=== PATIENT | female | born 2000 | race Caucasian/White ===

== ENCOUNTER 2023-01-24 19:34 | Emergency (ER) | payer BC ==
[2023-01-24 19:46] VITALS: TEMP 98.1
--- NOTE | 2023-01-24 20:22 | ED ---
Abdominal Pain HPI - General Source: patient, RN notes reviewed Mode of arrival: ambulatory <Jenny Diaz - Last Filed: 01/24/23 20:21> <Bowen Staley - Last Filed: 01/24/23 23:17> - General Chief Complaint: Abdominal Pain Stated Complaint: lower abd pain Time Seen by Provider: 01/24/23 20:21 - History of Present Illness Initial Comments: Patient is a 22-year-old female presents to the emergency department for abdominal pain. Patient reports intermittent pain in her left lower abdomen for the past week. Pain radiates to the back. It is worse with lifting heavy objects. Patient denies fever, chills, nausea, vomiting, blood in the urine, burning with urination, increased urinary frequency/urgency. Denies chance of . (Jenny Diaz) Patient is a 22-year-old female with past medical history remarkable for fibromyalgia, kidney stones who presents emergency Department complaining of left lower quadrant and left flank pain that started the last couple days. It is worse when she lifts or moves in certain directions. Comes and goes and waxing and waning. No known palliative factors. Denies any chest pain or shortness breath. Denies any fevers or cough. Denies any nausea, vomiting, diarrhea. Denies any dysuria or hematuria. Denies any vaginal discharge or bleeding. States the pain is somewhat sharp and achy. Does have a history of prior septic kidney stone. Is concerned regarding this. Presents for further evaluation at this time. (Bowen Staley) - Related Data Allergies Allergy/AdvReac Type Severity Reaction Status Date / Time No Known Allergies Allergy Verified 01/24/23 19:47 Review of Systems ROS Other: All systems not noted in ROS Statement are negative. <Jenny Diaz - Last Filed: 01/24/23 20:21> ROS Other: All systems not noted in ROS Statement are negative. <Bowen Staley - Last Filed: 01/24/23 23:17> ROS Statement: Those systems with pertinent positive or pertinent negative responses have been documented in the HPI. Review of Systems: CONST: Denies fever EYES: Denies blurry vision ENT: Denies nasal congestion C/V: Denies Chest pain RESP: Denies shortness of breath GI: Endorses left flank pain : Denies dysuria SKIN: Denies rash. MSK: Denies joint pain. NEURO: Denies headache (Bowen Staley) Past Medical History Past Medical History: No Reported History, Seizure Disorder Additional Past Medical History / Comment(s): FIbro, stent for kidney History of Any Multi-Drug Resistant Organisms: C-DIFF Past Surgical History: Appendectomy, Tonsillectomy Past Psychological History: No Psychological Hx Reported, Anxiety, PTSD Smoking Status: Current every day smoker Past Alcohol Use History: Rare Past Drug Use History: Marijuana <Jenny Diaz - Last Filed: 01/24/23 20:21> General Exam <Jenny Diaz - Last Filed: 01/24/23 20:21> <Bowen Staley - Last Filed: 01/24/23 23:17> - General Exam Comments Initial Comments: Visual Physical Exam Vital signs reviewed General: Well-appearing, nontoxic, no acute distress. Head: Normocephalic, atraumatic Eyes: PERRLA, EOMI ENT: Airway patent Chest: Nonlabored breathing Skin: No visual rash, normal skin tone Neuro: Alert and oriented 3 Musculoskeletal: No gross abnormalities (Jenny Diaz) General: Appears in no acute distress. HEAD: Normal with no signs of head trauma. EYES: PERRLA, EOMI, conjunctiva normal, no discharge. ENT: Hearing grossly intact, normal oropharynx. RESPIRATORY: Clear breath sounds bilaterally. No wheezes, rales, or rhonchi. C/V: Regular rate and rhythm. S1 and S2 auscultated, no edema, peripheral pulses 2+ and intact throughout ABD: Abdomen is soft, nondistended. Mild tenderness to palpation mostly in the left flank with radiation to the left paraspinal muscles in the lower lumbar spine. Seems to be radicular in nature and worse with movement. No guarding. No peritoneal signs. No rebound tenderness. EXT: Normal range of motion, no obvious deformity. No midline cervical, thoracic, lumbar spine tenderness palpation. SKIN: No rashes or lesions observed on exposed skin. NEURO: Alert and oriented 4. (Bowen Staley) Course Vital Signs 01/24/23 19:43 Temperature 98.1 F Pulse Rate 72 Respiratory 16 Rate Blood Pressure 120/76 O2 Sat by Pulse 98 Oximetry Medical Decision Making - Lab Data Result diagrams: 01/24/23 21:38 01/24/23 21:38 <Bowen Staley - Last Filed: 01/24/23 23:17> - Medical Decision Making Was pt. sent in by a medical professional or institution (GINETTE Peng, [employer], urgent care, hospital, or senior living...) When possible be specific @ -No Did you speak to anyone other than the patient for history (EMS, parent, family, police, friend...)? What history was obtained from this source @ -No Did you review nursing and triage notes (agree or disagree)? Why? @ -I reviewed and agree with nursing and triage notes Were old charts reviewed (outside hosp., previous admission, EMS record, old EKG, old radiological studies, urgent care reports/EKG's, senior living records)? Report findings @ -No old charts were reviewed Differential Diagnosis (chest pain, altered mental status, abdominal pain women, abdominal pain men, vaginal bleeding, weakness, fever, dyspnea, syncope, headache, dizziness, GI bleed, back pain, seizure, CVA, palpatations, mental health, musculoskeletal)? @ -Differential Abdominal Pain Women: Appendicitis, Cholecystitis, diverticulosis, ischemic bowel, pancreatitis, hepatitis, UTI, gastroenteritis, AAA, incarcerated hernia, bowel obstruction, constipation, inflammatory bowel, hepatitis, peptic ulcer disease, splenic infarction, perforated viscus, vulvitis, ovarian torsion, PID, kidney stone, placenta abruption, this is not meant to be an all-inclusive list EKG interpreted by me (3pts min.). @ -None done X-rays interpreted by me (1pt min.). @ -None done CT interpreted by me (1pt min.). @ -None done U/S interpreted by me (1pt. min.). @ -Interpreted by radiology. Pelvic ultrasound revealed no evidence of ovarian torsion or mass. Bladder and renal ultrasound revealed no evidence of hydronephrosis or stone. What testing was considered but not performed or refused? (CT, X-rays, U/S, labs)? Why? @ -Considered CT imaging however, patient's mentation is slow musculoskeletal and therefore we will defer until laboratory studies return. She was in agreement this plan. What meds were considered but not given or refused? Why? @ -None Did you discuss the management of the patient with other professionals (professionals i.e. Dr., PA, [employer], lab, RT, psych nurse, social director, creative services writer, teacher, senior loan officer, manager case)? Give summary @ -No Was smoking cessation discussed for >3mins.? @ -No Was critical care preformed (if so, how long)? @ -No Were there social determinants of health that impacted care today? How? (Homelessness, low income, unemployed, alcoholism, drug addiction, transportation, low edu. Level, literacy, decrease access to med. care, prison, rehab)? @ -No Was there de-escalation of care discussed even if they declined (Discuss DNR or withdrawal of care, Hospice)? DNR status @ -No What co-morbidities impacted this encounter? (DM, HTN, Smoking, COPD, CAD, Cancer, CVA, ARF, Chemo, Hep., AIDS, mental health diagnosis, sleep apnea, morbid obesity)? @ -None Was patient admitted / discharged? Hospital course, mention meds given and route, prescriptions, significant lab abnormalities, going to OR and other pertinent info. @ -Based on the patient's presentation and physical exam, she presents with concern for abdominal pain. Has a history of kidney stones. States it is somewhat related but not exactly. States the pain is currently improved. Initially expressed the pain when lifting up a child. His no other acute complaints at this time. We will obtain abdominal laboratory studies. Pelvic ultrasound obtained while the patient was in triage that she was initially seen as a quick note, and was negative for any evidence of torsion. We'll add on a bladder and renal ultrasound at this time. She was in agreement with this plan. She'll be given a 1 L fluid bolus as well as IV Toradol for analgesia. Patient's labs are within acceptable limits including a lactic acid within normal limits. No leukocytosis. Urine shows no evidence of hematuria or infection. Patient is not . Ultrasound of the kidney and bladder unremarkable. I updated the patient. We did discuss possible CT imaging, and after discussion decided to defer CT imaging as patient's pain is somewhat improved, she has normal laboratory studies. Ultrasound is unremarkable. She was in agreement this plan. She'll be given prescriptions for Robaxin as well as lidocaine patch. Discussed return precautions. She was in agreement this plan. We discussed that is not appeared is a kidney stone at this time. Pain may be musculoskeletal related. I will provide the patient with a prescription for Robaxin, lidocaine patch. I instructed the patient to follow up with their PCP in the next 1-3 days. I explained that the patient should return to the emergency department if they experience any worsening symptoms. Strict return precautions were discussed with the patient. The patient expressed understanding of these instructions. I answered all questions that the patient had. The patient was discharged home in good condition with their prescriptions and follow up information. Undiagnosed new problem with uncertain prognosis? @ -No Drug Therapy requiring intensive monitoring for toxicity (Heparin, Nitro, Insulin, Cardizem)? @ -No Were any procedures done? @ -No Diagnosis/symptom? @ -Left flank pain, suspect musculoskeletal Acute, or Chronic, or Acute on Chronic? @ -Acute Uncomplicated (without systemic symptoms) or Complicated (systemic symptoms)? @ -uncomplicated Side effects of treatment? @ -No Exacerbation, Progression, or Severe Exacerbation? @ -No Poses a threat to life or bodily function? How? (Chest pain, [place], [place], pneumonia, PE, COPD, DKA, ARF, appy, cholecystitis, CVA, Diverticulitis, Homicidal, Suicidal, threat to staff... and all critical care pts) @ -No (Bowen Staley) - Lab Data Lab Results 01/24/23 01/24/23 01/24/23 Range/Units 20:48 20:48 21:38 WBC 9.0 (3.8-10.6) k/uL RBC 4.41 (3.80-5.40) m/uL Hgb 13.6 (11.4-16.0) gm/dL Hct 40.0 (34.0-46.0) % MCV 90.8 (80.0-100.0) fL MCH 30.9 (25.0-35.0) pg MCHC 34.0 (31.0-37.0) g/dL RDW 12.5 (11.5-15.5) % Plt Count 247 (150-450) k/uL MPV 7.9 Neutrophils % 42 % Lymphocytes % 44 % Monocytes % 4 % Eosinophils % 5 % Basophils % 1 % Neutrophils # 3.8 (1.3-7.7) k/uL Lymphocytes # 4.0 (1.0-4.8) k/uL Monocytes # 0.4 (0-1.0) k/uL Eosinophils # 0.5 (0-0.7) k/uL Basophils # 0.1 (0-0.2) k/uL Sodium (137-145) mmol/L Potassium (3.5-5.1) mmol/L Chloride (98-107) mmol/L Carbon Dioxide (22-30) mmol/L Anion Gap mmol/L BUN (7-17) mg/dL Creatinine (0.52-1.04) mg/dL Est GFR (CKD-EPI)AfAm (>60 ml/min/1.73 sqM) Est GFR (CKD-EPI)NonAf (>60 ml/min/1.73 sqM) Glucose (74-99) mg/dL Plasma Lactic Acid Tee (0.7-2.0) mmol/L Calcium (8.4-10.2) mg/dL Total Bilirubin (0.2-1.3) mg/dL AST (14-36) U/L ALT (4-34) U/L Alkaline Phosphatase (38-126) U/L Total Protein (6.3-8.2) g/dL Albumin (3.5-5.0) g/dL Lipase (23-300) U/L Urine Color Yellow Urine Appearance Cloudy H (Clear) Urine pH 7.0 (5.0-8.0) Ur Specific [place] 1.022 (1.001-1.035) Urine Protein Negative (Negative) Urine Glucose (UA) Negative (Negative) Urine Ketones Negative (Negative) Urine Blood Negative (Negative) Urine Nitrite Negative (Negative) Urine Bilirubin Negative (Negative) Urine Urobilinogen <2.0 (<2.0) mg/dL Ur Leukocyte Esterase Negative (Negative) Urine RBC 1 (0-5) /hpf Urine WBC <1 (0-5) /hpf Urine WBC Clumps Rare H (None) /hpf Ur Squamous Epith Cells 1 (0-4) /hpf Amorphous Sediment Occasional H (None) /hpf Urine Bacteria Rare H (None) /hpf Urine Mucus Rare H (None) /hpf Urine HCG, Qual Not Detected (Not Detectd) 01/24/23 01/24/23 Range/Units 21:38 21:38 WBC (3.8-10.6) k/uL RBC (3.80-5.40) m/uL Hgb (11.4-16.0) gm/dL Hct (34.0-46.0) % MCV (80.0-100.0) fL MCH (25.0-35.0) pg MCHC (31.0-37.0) g/dL RDW (11.5-15.5) % Plt Count (150-450) k/uL MPV Neutrophils % % Lymphocytes % % Monocytes % % Eosinophils % % Basophils % % Neutrophils # (1.3-7.7) k/uL Lymphocytes # (1.0-4.8) k/uL Monocytes # (0-1.0) k/uL Eosinophils # (0-0.7) k/uL Basophils # (0-0.2) k/uL Sodium 137 (137-145) mmol/L Potassium 3.5 (3.5-5.1) mmol/L Chloride 102 (98-107) mmol/L Carbon Dioxide 26 (22-30) mmol/L Anion Gap 9 mmol/L BUN 8 (7-17) mg/dL Creatinine 0.55 (0.52-1.04) mg/dL Est GFR (CKD-EPI)AfAm >90 (>60 ml/min/1.73 sqM) Est GFR (CKD-EPI)NonAf >90 (>60 ml/min/1.73 sqM) Glucose 83 (74-99) mg/dL Plasma Lactic Acid Tee 0.8 (0.7-2.0) mmol/L Calcium 9.4 (8.4-10.2) mg/dL Total Bilirubin 0.5 (0.2-1.3) mg/dL AST 21 (14-36) U/L ALT 13 (4-34) U/L Alkaline Phosphatase 75 (38-126) U/L Total Protein 7.2 (6.3-8.2) g/dL Albumin 4.7 (3.5-5.0) g/dL Lipase 76 (23-300) U/L Urine Color Urine Appearance (Clear) Urine pH (5.0-8.0) Ur Specific [place] (1.001-1.035) Urine Protein (Negative) Urine Glucose (UA) (Negative) Urine Ketones (Negative) Urine Blood (Negative) Urine Nitrite (Negative) Urine Bilirubin (Negative) Urine Urobilinogen (<2.0) mg/dL Ur Leukocyte Esterase (Negative) Urine RBC (0-5) /hpf Urine WBC (0-5) /hpf Urine WBC Clumps (None) /hpf Ur Squamous Epith Cells (0-4) /hpf Amorphous Sediment (None) /hpf Urine Bacteria (None) /hpf Urine Mucus (None) /hpf Urine HCG, Qual (Not Detectd) Disposition <Jenny Diaz - Last Filed: 01/24/23 20:21> Is patient prescribed a controlled substance at d/c from ED?: No Time of Disposition: 23:08 <Bowen Staley - Last Filed: 01/24/23 23:17> Clinical Impression: Muscle strain, Flank pain Disposition: HOME SELF-CARE Condition: Good Instructions (If sedation given, give patient instructions): Muscle Strain (ED) Referrals: None,Stated [REFERRING] - 1-2 days
--- NOTE | 2023-01-24 21:23 | US ---
EXAMINATION TYPE: US pelvic complete DATE OF EXAM: 01/24/2023 COMPARISON: NONE CLINICAL INDICATION: Female, 22 years old with history of LLQ pain; LLQ pain radiating to back TECHNIQUE: Transabdominal sonographic images of the pelvis were acquired. Transvaginal sonographic im ages were medically necessary to better assess the following anatomy: ovaries and uterus. Date of LMP: Unknown EXAM MEASUREMENTS: Uterus: 6.8 x 4.7 x 2.9 cm Endometrial Stripe: 0.62 cm Right Ovary: 2.5 x 2.5 x 1.6 cm Left Ovary: 3.6 x 2.0 x 2.1 cm 1. Uterus: Retroverted; wnl. IUD appears in anatomic position 2. Endometrium: wnl 3. Right Ovary: dominant follicle seen 4. Left Ovary: wnl Spectral, color and waveform doppler imaging shows good arterial and venous flow within the ovaries ; there is no evidence for ovarian torsion. 5. Bilateral Adnexa: Bowel gas visualized in bilateral adnexa 6. Posterior cul-de-sac: trace amount of fluid seen IMPRESSION: No acute sonographic process.
[2023-01-24] MEDS ORDERED: SODIUM CHLORIDE 0.9% 1,000 ML IV STA (21:45)
[2023-01-24] MEDS ORDERED: KETOROLAC 15 MG/ML 1 ML VIAL IVP STA (21:45)
[2023-01-24 22:14] LABS: Basophils # (A) 0.1 k/uL (0-0.2); Basophils % (A) 1 %; Eosinophils # (A) 0.5 k/uL (0-0.7); Eosinophils % (A) 5 %; HGB 13.6 gm/dL (11.4-16.0); Lymphocytes % (A) 44 %; MCH 30.9 pg (25.0-35.0); MCV 90.8 fL (80.0-100.0); Mean Platelet Volume 7.9; Monocytes # (A) 0.4 k/uL (0-1.0); Monocytes % (A) 4 %; Neutrophils # (A) 3.8 k/uL (1.3-7.7); Neutrophils % (A) 42 %; Platelet Count 247 k/uL (150-450); RBC 4.41 m/uL (3.80-5.40); RDW 12.5 % (11.5-15.5)
[2023-01-24 22:20] LABS: Amorphous Sediment,Urine Occasional /hpf; Appearance,Urine Cloudy (Clear); Bacteria,Urine Rare /hpf; Bilirubin,Urine Negative (Negative); Blood,Urine Negative (Negative); Color,Urine Yellow; Glucose,Urine (UA) Negative (Negative); Ketones,Urine Negative (Negative); Leukocyte Esterase,Urine Negative (Negative); Mucus,Urine Rare /hpf; Nitrite,Urine Negative (Negative); Protein,Urine Negative (Negative); RBC,Urine 1 /hpf (0-5); Specific Gravity,Urine 1.022 (1.001-1.035); Squamous Epithelial Cell,Urine 1 /hpf (0-4); Urobilinogen,Urine <2.0 mg/dL (<2.0); WBC,Urine <1 /hpf (0-5)
[2023-01-24 22:31] LABS: ALT 13 U/L (4-34); AST 21 U/L (14-36); African American GFR (CKD) >90 (>60 ml/min/1.73 sqM); Albumin 4.7 g/dL (3.5-5.0); Alkaline Phosphatase 75 U/L (38-126); Anion Gap 9 mmol/L; Blood Urea Nitrogen 8 mg/dL (7-17); Calcium 9.4 mg/dL (8.4-10.2); Carbon Dioxide 26 mmol/L (22-30); Chloride 102 mmol/L (98-107); Glucose 83 mg/dL (74-99); Lipase 76 U/L (23-300); Non-African American GFR(CKD) >90 (>60 ml/min/1.73 sqM); Potassium 3.5 mmol/L (3.5-5.1); Sodium 137 mmol/L (137-145); Total Bilirubin 0.5 mg/dL (0.2-1.3); Total Protein 7.2 g/dL (6.3-8.2)
[2023-01-24] MEDS ORDERED: methocarbamoL 500 MG TAB PO STA (22:51)
[2023-01-24] MEDS ORDERED: LIDOCAINE 5% PATCH TOPICAL STA (22:51)
--- NOTE | 2023-01-24 23:09 | US ---
EXAM: US Retroperitoneal Limited, Renal CLINICAL HISTORY: ITS.REASON US Reason: eval for right sided hydronephrosis/stone TECHNIQUE: Real-time limited ultrasound of the retroperitoneum with image documentation. COMPARISON: No relevant prior studies available. FINDINGS: Right kidney: 0.5 cm nonobstructing right upper pole intrarenal calculus. No hydronephrosis. Left kidney: Unremarkable. No hydroureteronephrosis.. IMPRESSION: No acute findings in the retroperitoneum.
[2023-01-24 23:28] VITALS: BP 122/78; PULSE 73; RESP 17
== END 2023-01-24 23:30 | disposition home or self-care (01) ==
LOC: EC 19:34
DX: S39.012A Strain of muscle, fascia and tendon of lower back, initial encounter (principal); R10.32 Left lower quadrant pain; F17.200 Nicotine dependence, unspecified, uncomplicated; F12.90 Cannabis use, unspecified, uncomplicated; X50.0XXA Overexertion from strenuous movement or load, initial encounter
CPT/HCPCS: 36415; 80053; 83605; 83690; 85025; 81001; 81025; 93975; 76856; 76830; 76770; 99284; 96374; 96361; J1885

== ENCOUNTER → 2023-03-09 | Outpatient (CLI) | payer BC ==
--- NOTE | 2023-03-09 12:47 | XR ---
EXAMINATION TYPE: XR chest 2V DATE OF EXAM: 03/09/2023 COMPARISON: NONE HISTORY: Chest pain TECHNIQUE: Frontal and lateral views of the chest are obtained. FINDINGS: There is no focal air space opacity. No evidence for pneumothorax. No pleural effusion. The cardiac silhouette size is within normal limits. The osseous structures are grossly intact. IMPRESSION: 1. No acute cardiopulmonary process.
== END | disposition home or self-care (01) ==
LOC: RADXRMAIN 12:22
PROVIDERS: ATTEND Internal Medicine
DX: J45.990 Exercise induced bronchospasm (principal)
CPT/HCPCS: 71046

== ENCOUNTER → 2023-03-09 | Outpatient (CLI) | payer BC ==
[2023-03-09 23:03] LABS: Basophils # (A) 0.09 X 10*3/uL (0.00-0.10); Eosinophils # (A) 1.08 X 10*3/uL (0.04-0.35); Eosinophils % (A) 12.2 %; HGB 15.2 d/dL (12.0-15.0); Lymphocytes # (A) 4.25 X 10*3/uL (0.90-5.00); MCH 31.3 pg (27.0-32.0); MCHC 33.8 d/dL (32.0-37.0); MCV 92.8 FL (80.0-97.0); Mean Platelet Volume 10.1 FL (9.5-12.2); Monocytes % (A) 6.8 %; NRBC Per 100 WBC 0 X 10*3/uL (0.00-0.01); Neutrophils % (A) 31.7 %; Platelet Count 286 X 10*3/uL (140-440); RBC 4.85 X 10*6/uL (4.10-5.20); RDW 12.1 % (11.5-14.5); WBC 8.85 X 10*3/uL (4.50-10.00)
[2023-03-09 23:20] LABS: ALT 14 U/L (8-44); AST 15 U/L (13-35); Albumin/Globulin Ratio 2.27 Ratio (1.60-3.17); Alkaline Phosphatase 84 U/L (41-126); BUN/Creat Ratio 11.22 Ratio (12.00-20.00); Blood Urea Nitrogen 10.1 mg/dL (9.0-27.0); Carbon Dioxide 25.3 mmol/L (21.6-31.8); Chloride 102 mmol/L (96-109); Chol/HDL Ratio 2.37 Ratio; Globulin 2.2 d/dL (1.6-3.3); Glucose 90 mg/dL (70-110); LDL Cholesterol,Calculated 66.4 mg/dL (0.0-131.0); Potassium 4.6 mmol/L (3.5-5.5); Sodium 142 mmol/L (135-145); Total Bilirubin 0.5 mg/dL (0.3-1.2); Total Protein 7.2 d/dL (6.2-8.2); Uric Acid 5.2 mg/dL (2.9-7.7)
== END | disposition home or self-care (01) ==
LOC: LABWHC1 11:53
PROVIDERS: ATTEND Internal Medicine
DX: Z11.59 Encounter for screening for other viral diseases (principal); M79.7 Fibromyalgia; N20.0 Calculus of kidney
CPT/HCPCS: 36415; 80053; 80061; 84443; 84550; 85025; 86803

== ENCOUNTER → 2024-06-05 | Outpatient (CLI) | payer BC ==
[2024-06-05 14:56] LABS: Basophils # (A) 0.08 X 10*3/uL (0.00-0.10); Basophils % (A) 1.1 %; Eosinophils # (A) 0.39 X 10*3/uL (0.04-0.35); Eosinophils % (A) 5.3 %; HCT 41.6 % (37.2-46.3); HGB 14.4 g/dL (12.0-15.0); Lymphocytes # (A) 3.66 X 10*3/uL (0.90-5.00); Lymphocytes % (A) 49.5 %; MCH 33.3 pg (27.0-32.0); MCHC 34.6 g/dL (32.0-37.0); MCV 96.1 FL (80.0-97.0); Mean Platelet Volume 10.4 FL (9.5-12.2); Monocytes # (A) 0.45 X 10*3/uL (0.20-1.00); Monocytes % (A) 6.1 %; NRBC Per 100 WBC 0 X 10*3/uL (0.00-0.01); Neutrophils % (A) 37.7 %; Platelet Count 258 X 10*3/uL (140-440); RBC 4.33 X 10*6/uL (4.10-5.20); RDW 11.9 % (11.5-14.5)
[2024-06-05 15:31] LABS: ALT 11 U/L (8-44); AST 18 U/L (13-35); Albumin 5.1 g/dL (3.8-4.9); Albumin/Globulin Ratio 2.22 Ratio (1.60-3.17); Alkaline Phosphatase 77 U/L (41-126); BUN/Creat Ratio 16.29 Ratio (12.00-20.00); Blood Urea Nitrogen 11.4 mg/dL (9.0-27.0); Calcium 10.3 mg/dL (8.7-10.3); Carbon Dioxide 25.3 mmol/L (21.6-31.8); Chloride 105 mmol/L (96-109); Chol/HDL Ratio 2.73 Ratio; Globulin 2.3 g/dL (1.6-3.3); Glucose 90 mg/dL (70-110); Potassium 4.1 mmol/L (3.5-5.5); Sodium 142 mmol/L (135-145); Total Bilirubin 0.6 mg/dL (0.3-1.2); Total Protein 7.4 g/dL (6.2-8.2); Uric Acid 3.7 mg/dL (2.9-7.7); VLDL Calculation 12.96 mg/dL (5.00-40.00)
== END ==
LOC: LABWHC1 08:21
PROVIDERS: ATTEND Internal Medicine
DX: Z00.00 Encounter for general adult medical examination without abnormal findings (principal)
CPT/HCPCS: 36415; 80053; 80061; 84443; 84550; 85025

== ENCOUNTER → 2024-09-21 | Outpatient (CLI) | payer BC ==
[2024-09-21 21:44] LABS: ALT 12 U/L (8-44); AST 20 U/L (13-35)
[2024-09-21 22:02] LABS: Basophils # (A) 0.06 X 10*3/uL (0.00-0.10); Basophils % (A) 0.6 %; Eosinophils # (A) 0.16 X 10*3/uL (0.04-0.35); Eosinophils % (A) 1.6 %; HCT 45.4 % (37.2-46.3); HGB 14.8 g/dL (12.0-15.0); Lymphocytes # (A) 2.81 X 10*3/uL (0.90-5.00); Lymphocytes % (A) 28.8 %; MCH 31.5 pg (27.0-32.0); MCHC 32.6 g/dL (32.0-37.0); MCV 96.6 FL (80.0-97.0); Mean Platelet Volume 10.6 FL (9.5-12.2); Monocytes % (A) 5.1 %; NRBC Per 100 WBC 0 X 10*3/uL (0.00-0.01); Neutrophils # (A) 6.18 X 10*3/uL (1.80-7.70); Neutrophils % (A) 63.5 %; Platelet Count 273 X 10*3/uL (140-440); RDW 11.6 % (11.5-14.5); WBC 9.75 X 10*3/uL (4.50-10.00)
[2024-09-21 22:23] LABS: Hepatitis B Core IgM Nonreactive (Nonreactive); Hepatitis B Surface Antigen Nonreactive (Nonreactive); Hepatitis C IgG Antibody Nonreactive (Nonreactive)
== END | disposition home or self-care (01) ==
LOC: LABWHC1 12:20
PROVIDERS: ATTEND Dermatology Procedural Dermatology
DX: L73.2 Hidradenitis suppurativa (principal)
CPT/HCPCS: 36415; 82565; 84450; 84460; 85025; 86480; 86704; 86705; 86803; 87340